=== PATIENT | female | born 1930 | race Caucasian/White ===

== ENCOUNTER 2022-01-27 00:55 | Emergency (ER) | payer MEDICARE, OTHER ==
[~2022-01-27] VITALS: Ht 162.6 cm; Wt 67.7 kg
--- NOTE | 2022-01-27 00:55 | NUR ---
DR. DAUGHERTY AT BEDSIDE, MSE IN PROGRESS.
--- NOTE | 2022-01-27 01:18 | NUR ---
LAB AT BEDSIDE.
[2022-01-27 01:26] LABS: HEMATOCRIT 27.1 % (31.2-41.9); MEAN CORPUSCULAR HEMOGLOBIN 34.6 uug (24.7-32.8); MEAN CORPUSCULAR VOLUME 99.2 fL (75.5-95.3); PLATELET COUNT (AUTO) 131 K/uL (179-408)
--- NOTE | 2022-01-27 01:27 | NUR ---
XRAY AT BEDSIDE.
[2022-01-27] MEDS ORDERED: NITR0.4T SL (01:29)
[2022-01-27] MEDS ORDERED: ISOS30TA86 PO (01:29)
[2022-01-27] MEDS ORDERED: SIMV10TA98 PO (01:29)
[2022-01-27] MEDS ORDERED: ACET-73 PO (01:29)
[2022-01-27] MEDS ORDERED: BUDE10.22 IH (01:29)
[2022-01-27] MEDS ORDERED: LEVO50TA8 PO (01:29)
[2022-01-27] MEDS ORDERED: FOLI0.8T2 PO (01:29)
[2022-01-27] MEDS ORDERED: DOCU-141 PO (01:29)
[2022-01-27] MEDS ORDERED: CHOL200010 PO (01:29)
[2022-01-27] MEDS ORDERED: MIRT-121 PO (01:29)
[2022-01-27] MEDS ORDERED: BENZ-13 PO (01:29)
[2022-01-27] MEDS ORDERED: EPOE20005 IJ (01:29)
[2022-01-27] MEDS ORDERED: METH1ADH11 TOP (01:29)
[2022-01-27] MEDS ORDERED: DICLOFENAC SODIUM TOP (01:29)
[2022-01-27] MEDS ORDERED: SPIR25TA6 PO (01:29)
[2022-01-27] MEDS ORDERED: MAG30ORA PO (01:29)
[2022-01-27] MEDS ORDERED: ASPI-618 PO (01:29)
[2022-01-27] MEDS ORDERED: FLUT16SP16 NS (01:29)
[2022-01-27] MEDS ORDERED: CETI-90 PO (01:29)
[2022-01-27] MEDS ORDERED: PANT40TA2 PO (01:29)
[2022-01-27] MEDS ORDERED: ALBU2.5V13 IH (01:29)
[2022-01-27] MEDS ORDERED: ALBU6.7H9 IH (01:29)
[2022-01-27] MEDS ORDERED: LOPE2CAP PO (01:29)
[2022-01-27] MEDS ORDERED: SENN-18 PO (01:29)
[2022-01-27] MEDS ORDERED: APIX5TAB PO (01:29)
[2022-01-27 01:32] LABS: CARBON DIOXIDE 29 mmol/L (21-32); CHLORIDE 105 mmol/L (98-107); CREATININE 1.6 mg/dL (0.6-1.3); GLUCOSE 105 mg/dL (74-106); POTASSIUM 4.1 mmol/L (3.5-5.1); UREA NITROGEN, BLOOD 25 mg/dL (7-18)
[2022-01-27 01:49] LABS: ALANINE AMINOTRANSFERASE 14 U/L (14-59); ALKALINE PHOSPHATASE 89 U/L (50-136); ASPARTATE AMINOTRANSFERASE 13 U/L (15-37); BILIRUBIN,DIRECT 0.1 mg/dL (0.0-0.2); BILIRUBIN,TOTAL 0.4 mg/dL (0.2-1.0); TOTAL PROTEIN, SERUM 6.4 g/dL (6.4-8.2)
--- NOTE | 2022-01-27 01:55 | NUR ---
ASSISTED PT TO USE BED SUTTON. DENIES ANY PAIN/DISCOMFORT, WELL TOLERATED.
[2022-01-27] MEDS ORDERED: FUROSEMIDE 40 MG/4 ML VIAL ONE (03:14)
[2022-01-27] MEDS ORDERED: FUROSEMIDE 40 MG/4 ML VIAL IV ONE (03:15)
--- NOTE | 2022-01-27 04:14 | NUR ---
SPOKE WITH CHAZ ([facility]) FROM [facility] AND MADE AWARE THAT PT WILL BE DISCHARGED BACK TO FACILITY, CHAZ VERBALIZED UNDERSTANDING.
--- NOTE | 2022-01-27 04:30 | NUR ---
PATRICK DAUGHERTY FOR RECTAL EXAM.
--- NOTE | 2022-01-27 04:35 | NUR ---
CALLED [facility] AND SPOKE WITH YONATAN, PROVIDED WITH ETA OF 20-30 MINUTES.
--- NOTE | 2022-01-27 05:03 | NUR ---
[facility] [address] AT BEDSIDE.
[2022-01-27 05:19] VITALS: BP 112/70
== END 2022-01-27 05:20 ==
LOC: ER 01:03
DX: R00.2 Palpitations (principal); R06.00 Dyspnea, unspecified; D64.9 Anemia, unspecified; I48.91 Unspecified atrial fibrillation; E78.5 Hyperlipidemia, unspecified; E03.9 Hypothyroidism, unspecified; Z79.01 Long term (current) use of anticoagulants; Z79.899 Other long term (current) drug therapy; Z79.890 Hormone replacement therapy; K21.9 Gastro-esophageal reflux disease without esophagitis; R26.2 Difficulty in walking, not elsewhere classified; I50.30 Unspecified diastolic (congestive) heart failure; Z88.6 Allergy status to analgesic agent; Z88.8 Allergy status to other drugs, medicaments and biological substances
CPT/HCPCS: 36415; 71045; 80048; 80076; 83880; 84484 ×2; 85025; 93005; 96374; 99285; J1940; A4663